=== PATIENT | male | born 1960 | race Caucasian/White ===

== ENCOUNTER 2024-11-13 12:26 | Inpatient (IN) | payer OTHER ==
[2024-11-13 13:06] LABS: Absolute Basophils 0.1 K/uL (0-0.5); Absolute Eosinophils 0.2 K/uL (0-0.5); Absolute Lymphocytes (CBC) 1.5 K/uL (0.7-4.9); Absolute Monocytes 0.5 K/uL (0.1-1.3); Absolute Neutrophil 5.1 K/uL (1.8-8.0); Basophils % 0.8 % (0-1.3); Eosinophils % 2.1 % (0-4.4); Hematocrit 45.1 % (39.6-49.0); Hemoglobin 15.1 g/dL (13.6-17.9); Lymphocytes % 20.5 % (15.3-44.8); MCH 29.5 pg (27.0-35.0); MCHC 33.5 g/dL (32.0-36.0); MCV 88.2 fL (80-100); Monocytes % 6.9 % (3.3-12.3); Neutrophils % 69.7 % (41.7-73.7); Platelets 213 thou/uL (152-406); RBC Red Blood Cell Count 5.11 M/uL (4.33-5.43); Red Cell Distribution Width 14.2 % (12.1-15.2)
[2024-11-13 13:25] LABS: ALT/SGPT 22 U/L (16-61); AST/SGOT 11 U/L (15-37); Albumin 3.5 g/dL (3.4-5.0); Albumin/Globulin Ratio 0.9 (1.1-1.8); Alkaline Phosphatase 81 U/L (45-117); Anion Gap 7.4 mEq/L (5.0-15.0); BUN Blood Urea Nitrogen 19 mg/dL (7-18); Bicarbonate 30 mEq/L (21-32); Bilirubin Direct < 0.2 mg/dL (0-0.2); Bilirubin Indirect, Calculated 0.1 mg/dL (0.2-0.8); Bilirubin Total 0.3 mg/dL (0.2-1.0); Globulin 3.7 g/dL (2.3-3.5); Glomerular Filtration Rate 83 ml/min (=/>90); Glucose Level 276 mg/dL (74-106); Lipase 71 U/L (13-75); NT PRO-BNP 87 pg/mL (<125); Potassium 4.4 mEq/L (3.5-5.1); Protein, Total 7.2 g/dL (6.4-8.2); Sodium Level 133 mEq/L (136-145); Troponin High Sensitivity 3.4 pg/mL (<58.9)
--- NOTE | 2024-11-13 13:30 | RAD REPORT ---
EXAMINATION: ONE VIEW CHEST XR CLINICAL INDICATION: Male, 64 years old.,Chest pain;Dyspnea TECHNIQUE: Frontal chest projection is submitted. Examination is limited by patient positioning and t echnique. COMPARISON: No prior exam. FINDINGS: The lungs are well inflated and clear. No pneumothorax or sizable effusion. The heart is normal in s ize. Mediastinal contours are unremarkable. IMPRESSION: No acute intrathoracic abnormalities.
--- NOTE | 2024-11-13 13:45 | ER ---
Nurse's Notes [facility] Name: Nima Fox Age: 64 yrs Sex: Male : 1960 Arrival Date: 11/13/2024 Time: 12:26 Bed 13 Private MD: Diagnosis: Chest pain, unspecified;Unstable angina Presentation: 11/13 12:30 Chief complaint: Patient states: he has been having chest pain since this morning ap3 patient reports this pain as a 6/10 on the pain scale. patient reports shortness of breath, reflux, sweating and hiccups for approx three weeks. Coronavirus screen: At this time, the client does not indicate any symptoms associated with coronavirus-19. Ebola Screen: No symptoms or risks identified at this time. Initial Sepsis Screen: Does the patient meet any 2 criteria? No. Patient's initial sepsis screen is negative. Does the patient have a suspected source of infection? No. Patient's initial sepsis screen is negative. Risk Assessment: Do you want to hurt yourself or someone else? Patient reports no desire to harm self or others. Onset of symptoms was November 13, 2024. 12:30 Method Of Arrival: Wheelchair ap3 12:30 Acuity: HOLA 2 ap3 Triage Assessment: 12:32 General: Appears in no apparent distress. Behavior is calm, cooperative, appropriate ap3 for age. Pain: Complains of pain in chest Pain currently is 6 out of 10 on a pain scale. Neuro: Level of Consciousness is awake, alert, obeys commands, Oriented to person, place, time, situation, Appropriate for age. Cardiovascular: Reports chest pain, Patient's skin is warm and dry. Respiratory: Airway is patent Respiratory effort is even, unlabored, Respiratory pattern is regular, symmetrical. Historical: - Allergies: 12:32 Ozempic; ap3 - PMHx: 12:32 Diabetes mellitus; Hypertensive disorder; ap3 - Immunization history:: Client reports receiving the 2nd dose of the Covid vaccine, Flu vaccine is not up to date. - Infectious Disease History:: Denies. - Social history:: Smoking status: Patient denies any tobacco usage or history of. - Family history:: not pertinent. - Hospitalizations: : No recent hospitalization is reported. Screenin:33 [facility] ED Fall Risk Assessment (Adult) History of falling in the last 3 months, ap3 including since admission No falls in past 3 months (0 pts) Confusion or Disorientation No (0 pts) Intoxicated or Sedated No (0 pts) Impaired Gait No (0 pts) Mobility Assist Device Used No (0 pt) Altered Elimination No (0 pt) Score/Fall Risk Level 0 - 2 = Low Risk Oriented to surroundings, Maintained a safe environment, Educated pt \T\ family on fall prevention, incl call for assistance when getting out of bed, Assessed \T\ reinforced patient's understanding of fall precautions, Hourly rounding (assess needs \T\ fall precautionary measures) done, Used ambulatory aids as needed (educated on \T\ assisted with), Used gait belt as appropriate. Abuse screen: Denies threats or abuse. Nutritional screening: No deficits noted. Tuberculosis screening: No symptoms or risk factors identified. Assessment: 12:35 General: Appears in no apparent distress. comfortable, Behavior is calm, cooperative, bp appropriate for age. Pain: Complains of pain in chest Pain does not radiate. Pain began 1 day ago. 14:43 Reassessment: REPORT FAXED FOR RM 224. bp Vital Signs: 12:30 BP 113 / 72; Pulse 83; Resp 17; Temp 98.1; Pulse Ox 100% ; Weight 88.45 kg; Height 5 ap3 ft. 10 in. ; Pain 6/10; 13:26 BP 133 / 75; Pulse 74; Resp 10; Pulse Ox 95% ; bp 12:30 Body Mass Index 27.98 (88.45 kg, 177.8 cm) ap3 12:30 Pain Scale: Adult ap3 ED Course: 12:28 Patient arrived in ED. mr 12:31 Triage completed. ap3 12:33 Arm band placed on right wrist. ap3 12:33 Patient maintains SpO2 saturation greater than 95% on room air. ap3 12:34 Modesto Rider MD is Attending Physician. rn 12:43 EKG done, by ED staff, reviewed by Modesto Rider MD. ap3 12:59 Matty Taylor, ODALYS is Primary Nurse. bp 13:00 Initial lab(s) drawn, by ia, sent to lab. Inserted saline lock: 20 gauge in right zm antecubital area, using aseptic technique. Blood collected. Flushed with 10 mL NS. 13:01 Basic Metabolic Panel Sent. zm 13:01 CBC with Diff Sent. zm 13:01 LFT's Sent. zm 13:01 NT PRO-BNP Sent. zm 13:01 Troponin HS Sent. zm 13:01 Lipase Sent. zm 13:07 XRAY Chest (1 view) In Process Unspecified. EDMS 13:26 Patient has correct armband on for positive identification. Client placed on continuous bp cardiac and pulse oximetry monitoring. NIBP monitoring applied. ekg monitor on. Pulse ox on. NIBP on. 13:44 Alfred Rider MD is Hospitalizing Provider. rn Administered Medications: 14:15 Drug: Aspirin PO Chewable Tablet 324 mg PO once; 81 mg tablets x 4 Route: PO; bp 14:31 Follow up: Response: No adverse reaction bp Outcome: 13:44 Decision to Hospitalize by Provider. rn 15:37 Patient left the ED. bp Signatures: Dispatcher [employer] EDMN RajanAdina, Reg Reg mr Modesto Rider MD MD rn Peltier, Brian RN RN Benita Lamb RN RN ap3 Beatrice Brar Corrections: (The following items were deleted from the chart) 12:32 12:32 Allergies: No Known Allergies; ap3 ap3
--- NOTE | 2024-11-13 13:45 | EDPHYS ---
Physician Documentation [facility] Name: Nima Fox Age: 64 yrs Sex: Male : 1960 Arrival Date: 11/13/2024 Time: 12:26 Bed 13 Private MD: ED Physician Modesto Rider HPI: 11/13 13:41 This 64 yrs old Male presents to ER via Wheelchair with complaints of Chest Pain, rn Shortness Of Breath. 13:41 The patient or guardian reports chest pain that is located primarily in the substernal rn area, anterior chest wall, left. 13:41 Onset: 3 week(s) ago. The pain does not radiate. Associated signs and symptoms: rn Pertinent positives: diaphoresis, shortness of breath, Pertinent negatives: abdominal pain, cough, palpitations, syncope. The chest pain is described as aching. Modifying factors: The symptoms are alleviated by nothing. the symptoms are aggravated by exertion. Severity of pain: At its worst the pain was mild in the emergency department the pain has improved. Patient reports intermittent chest pain, left-sided, associated with shortness of breath and diaphoresis with exertion. Alleviated with rest. States had cardiac workup years ago and diagnosed with mitral valve prolapse but no intervention indicated at that time. 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 Denies any fever or chills. No productive cough. No abdominal pain.. Historical: - Allergies: 12:32 Ozempic; ap3 - PMHx: 12:32 Diabetes mellitus; Hypertensive disorder; ap3 - Immunization history:: Client reports receiving the 2nd dose of the Covid vaccine, Flu vaccine is not up to date. - Infectious Disease History:: Denies. - Social history:: Smoking status: Patient denies any tobacco usage or history of. - Family history:: not pertinent. - Hospitalizations: : No recent hospitalization is reported. ROS: 13:41 Constitutional: Negative for fever, chills, and weight loss, Cardiovascular: Positive rn for chest pain with exertion Respiratory: Positive for shortness of breath during exertion only Abdomen/GI: Negative for abdominal pain, nausea, vomiting, diarrhea, and constipation, MS/Extremity: Negative for injury and deformity, Skin: Negative for injury, rash, and discoloration, Neuro: Negative for headache, weakness, numbness, tingling, and seizure, Exam: 13:41 Constitutional: This is a well developed, well nourished patient who is awake, alert, rn and in no acute distress. Cardiovascular: Regular rate and rhythm. No pulse deficits. Respiratory: No increased work of breathing, no retractions or nasal flaring. Abdomen/GI: Soft, non-tender MS/ Extremity: Pulses equal, no cyanosis. Neurovascular intact. Full, normal range of motion. Equal circumference. Neuro: Awake and alert, GCS 15 13:46 ECG was reviewed by the Attending Physician. rn Vital Signs: 12:30 BP 113 / 72; Pulse 83; Resp 17; Temp 98.1; Pulse Ox 100% ; Weight 88.45 kg; Height 5 ap3 ft. 10 in. ; Pain 6/10; 13:26 BP 133 / 75; Pulse 74; Resp 10; Pulse Ox 95% ; bp 12:30 Body Mass Index 27.98 (88.45 kg, 177.8 cm) ap3 12:30 Pain Scale: Adult ap3 MDM: 12:35 Medical Screening Exam initiated rn 13:41 Differential diagnosis: acute myocardial infarction, acute pericarditis, rn costochondritis, esophagitis, gastritis, pleurisy, pneumothorax, stable angina, unstable angina. HEART Score: History: Highly Suspicious (2), ECG: Normal (0), Age: > or = 65 years (2), Risk Factors: 1 or 2 risk factors (1), Troponin: < or = 1 x Normal Limit (0), Total Score = 5. Data reviewed: vital signs, nurses notes, lab test result(s), EKG, radiologic studies, plain films, and as a result, I will admit patient. Consideration of Admission/Observation Patient was admitted/placed on observation. Escalation of care including admission/observation considered. Counseling: I had a detailed discussion with the patient and/or guardian regarding the historical points, exam findings, and any diagnostic results supporting the discharge/admit diagnosis, lab results, radiology results, the need for further work-up and treatment in the hospital. Response to treatment: the patient's symptoms have markedly improved after treatment. ED course: Troponin negative and ECG without ischemia. Concerning story of exertional dyspnea and chest pain with diaphoresis and is worsening over the last 3 weeks. Will admit for cardiac workup.. 11/13 12:40 Order name: Basic Metabolic Panel; Complete Time: 13:34 rn 11/13 12:40 Order name: CBC with Diff; Complete Time: 13:34 rn 11/13 12:40 Order name: LFT's; Complete Time: 13:34 rn 11/13 12:40 Order name: NT PRO-BNP; Complete Time: 13:34 rn 11/13 12:40 Order name: Troponin HS; Complete Time: 13:34 rn 11/13 12:41 Order name: Lipase; Complete Time: 13:34 rn 11/13 14:18 Order name: Troponin High Sensitivity EDMS 11/13 14:18 Order name: Troponin High Sensitivity EDMS 11/13 14:18 Order name: Troponin High Sensitivity EDMS 11/13 12:40 Order name: XRAY Chest (1 view); Complete Time: 13:34 rn 11/13 14:21 Order name: Echo with Doppler EDMS 11/13 12:40 Order name: EKG; Complete Time: 12:41 rn 11/13 12:40 Order name: Cardiac monitoring; Complete Time: 12:49 rn 11/13 12:40 Order name: EKG - Nurse/Tech; Complete Time: 12:43 rn 11/13 12:40 Order name: IV Saline Lock; Complete Time: 13:00 rn 11/13 12:40 Order name: Labs collected and sent; Complete Time: 13:00 rn 11/13 12:40 Order name: O2 Per Protocol; Complete Time: 12:49 rn 11/13 12:40 Order name: O2 Sat Monitoring; Complete Time: 12:49 rn EC:46 Rate is 83 beats/min. Rhythm is regular. QRS [place] is Normal. RI interval is normal. QRS rn interval is normal. QT interval is normal. No Q waves. T waves are Flattened in leads II, III, aVF, V4, V5, V6. No ST changes noted. Clinical impression: NSR w/ Non-specific ST/T Changes. Interpreted by me. Reviewed by me. Administered Medications: 14:15 Drug: Aspirin PO Chewable Tablet 324 mg PO once; 81 mg tablets x 4 Route: PO; bp 14:31 Follow up: Response: No adverse reaction bp Disposition Summary: 11/13/24 13:44 Hospitalization Ordered Notes: Hospitalization Status: Observation rn Provider: Alfred Rider rn Location: Telemetry/[facility] (observation) rn Condition: Stable rn Problem: new rn Symptoms: have improved rn Bed/Room Type: Standard rn Room Assignment: 224(11/13/24 14:29) bd Diagnosis - Chest pain, unspecified rn - Unstable angina rn Forms: - Medication Reconciliation Form rn - SBAR form rn - Leadership Thank You Letter rn Signatures: Dispatcher [employer] EDMS Mariluz diego bd Modesto Rider MD MD rn Peltier, Brian, RN Benita Chan RN RN ap3 Corrections: (The following items were deleted from the chart) 12:32 12:32 Allergies: No Known Allergies; ap3 ap3 12:41 12:41 BASIC METABOLIC PANEL+C.LAB.BRZ ordered. EDMS EDMS 12:41 12:41 CBC+H.LAB.BRZ ordered. EDMS EDMS 12:41 12:41 HEPATIC FUNCTION+C.LAB.BRZ ordered. EDMS EDMS 12:41 12:41 PROBNP+C.LAB.BRZ ordered. EDMS EDMS 12:41 12:41 Troponin High Sensitivity+C.LAB.BRZ ordered. EDMS EDMS 14:29 13:44 rn bd
[2024-11-13] MEDS ORDERED: ASPIRIN 81 MG CHEWABLE TABLET ONE (14:20)
--- NOTE | 2024-11-13 14:46 | P.HP ---
Certification for Inpatient Patient admitted to: Observation With expected LOS: <2 Midnights Patient will require the following post-hospital care: None Practitioner: I am a practitioner with admitting privileges, knowledge of patient current condition, hospital course, and medical plan of care. Services: Services provided to patient in accordance with Admission requirements found in Title 42 Section 412.3 of the Code of Federal Regulations Patient History Date of Service: 11/13/24 History of Present Illness: 64-year-old male with history of jzi-nziiows-okkjqbkso diabetes, mitral valve prolapse presents emergency department chief complaint of dyspnea on exertion, chest pain last 3 weeks. He also reports what he describes as indigestion with burning epigastric pain and frequent hiccuping lately. Patient and family report they had a stress test/echo with Dr. Damon about 18 months ago that was reportedly normal. Has never had a heart catheterization. Patient describes dyspnea on exertion which is new as of the last 3 weeks. He was evaluated in the emergency department his labs are significant for an initial high sensitive troponin of 3.4 glucose 276 chest x-ray was negative for acute findings. ED provider wishes to admit patient for further evaluation and management of dyspnea on exertion, chest pain. 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 - Family History Father -: Heart disease Brother -: Heart disease - Social History Smoking Status: Never smoker Alcohol use: No CD- Drugs: No Caffeine use: Yes Place of Residence: Home Review of Systems 10-point ROS is otherwise unremarkable Respiratory: SOB with Excertion Cardiovascular: Chest Pain Physical Examination - Physical Exam General: Alert, In no apparent distress, Oriented x3 HEENT: Atraumatic, PERRLA, EOMI Neck: Supple, 2+ carotid pulse no bruit, No LAD Respiratory: Clear to auscultation bilaterally, Normal air movement Cardiovascular: Regular rate/rhythm, Normal S1 S2 Gastrointestinal: Normal bowel sounds, No tenderness Musculoskeletal: No tenderness Integumentary: No rashes Neurological: Normal speech, Normal strength at 5/5 x4 extr, Normal tone, Normal affect - Studies Laboratory Data (last 24 hrs) 11/13/24 11/13/24 12:56 12:56 WBC 7.40 Hgb 15.1 Hct 45.1 Plt Count 213 Sodium 133 L Potassium 4.4 BUN 19 H Creatinine 1.00 Glucose 276 H Total Bilirubin 0.3 AST 11 L ALT 22 Alkaline Phosphatase 81 Lipase 71 Assessment and Plan - Plan Assessment: Chest pain/dyspnea on exertion rule out ACS Suspected GERD Diabetes mellitus type [id number]-[id number] with hyperglycemia Mitral valve prolapse Plan: Chest pain/dyspnea on exertion rule out ACS Trend troponins, monitor on telemetry cardiology consult, echocardiogram ordered Reports outpatient stress around [address] Gallardo Currently chest pain-free Suspected GERD Will try twice daily PPI Recommend outpatient follow-up with GI Diabetes mellitus type 1ygj-zzjsjck-tgpicnvsc with hyperglycemia ACHS Accu-Chek, sliding scale insulin has not been taking his meds last few days Mitral valve prolapse Will obtain echo DVT PPX: Lovenox Code status: Full Discharge Plan: Home Plan to discharge in: 48 Hours - Advance Directives Does patient have a Living Will: No Does patient have a Durable POA for Healthcare: No - Code Status/Comfort Care Code Status Assessed: Yes (Full code) Critical Care: No Time Spent Managing Pts Care (In Minutes): 64
[2024-11-13] MEDS ORDERED: MORPHINE 2 MG/ML SYR IV PRN (15:13)
[2024-11-13] MEDS ORDERED: ONDANSETRON 4 MG/2 ML VIAL IV PRN (15:13)
[2024-11-13] MEDS ORDERED: GLUCAGON 1 MG/VIAL IM PRN (15:19)
[2024-11-13] MEDS ORDERED: D10W 125 ML IV PRN (15:19)
--- NOTE | 2024-11-13 16:30 | P.CNS ---
Date of Consult: 11/13/24 Chief Complaint: indigestion History of Present Illness: Patient with PMH of DM presented with worsening indigestion, nausea and SOB and occasional chest pain, described as sharp, mid, no radiation, also report dizziness and CELIS. 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 moist/pink, EOMI, Sclerae nonicteric Neck: Supple, 2+ carotid pulse no bruit, No LAD, Without JVD or thyroid abnormality Respiratory: Clear to auscultation bilaterally, Normal air movement Cardiovascular: Regular rate/rhythm, Normal S1 S2 Gastrointestinal: Normal bowel sounds, No tenderness Musculoskeletal: No tenderness Integumentary: No rashes Neurological: Normal gait, Normal speech, Normal tone, Normal affect Lymphatics: No axilla or inguinal lymphadenopathy Laboratory Data (last 24 hrs) 11/13/24 11/13/24 12:56 12:56 WBC 7.40 Hgb 15.1 Hct 45.1 Plt Count 213 Sodium 133 L Potassium 4.4 BUN 19 H Creatinine 1.00 Glucose 276 H Total Bilirubin 0.3 AST 11 L ALT 22 Alkaline Phosphatase 81 Lipase 71 - Problems (1) Chest pain Current Visit: Yes Status: Acute Plan: EKG is normal, 1st set of troponin is negative, continue to trend, if negative x3 then exercise nuclear stress test in am (Cardiolite) and echo (2) Dizziness Current Visit: Yes Status: Acute Plan: monitor on tele and consider outpatient event monitor
[2024-11-13 16:58] VITALS: BMI 27.8
[2024-11-13] MEDS: INSULIN REGULAR (HUMAN) 100 UNIT/ML SQ SCH (17:24)
[2024-11-13] MEDS: PANTOPRAZOLE 40MG TABLET PO SCH (17:24)
[2024-11-13] MEDS: SUCRALFATE 1GM/10ML UCUP PO SCH (17:24)
[2024-11-13] MEDS: ENOXAPARIN 40 MG/0.4 ML SQ SCH (17:25)
[2024-11-13] MEDS: GABAPENTIN 300 MG CAP PO SCH (21:00)
[2024-11-13] MEDS: ATORVASTATIN 40 MG TAB PO SCH (21:13)
[2024-11-13] MEDS: ACETAMINOPHEN 325 MG TABLET PO PRN (22:13)
[2024-11-14 06:04] LABS: Absolute Eosinophils 0.2 K/uL (0-0.5); Absolute Lymphocytes (CBC) 1.6 K/uL (0.7-4.9); Absolute Monocytes 0.6 K/uL (0.1-1.3); Absolute Neutrophil 5.1 K/uL (1.8-8.0); Basophils % 0.5 % (0-1.3); Eosinophils % 3.1 % (0-4.4); Hematocrit 45.1 % (39.6-49.0); Hemoglobin 14.9 g/dL (13.6-17.9); Lymphocytes % 21.4 % (15.3-44.8); MCH 29.7 pg (27.0-35.0); MCHC 33.1 g/dL (32.0-36.0); MCV 89.6 fL (80-100); MPV 8.1 fL (7.6-11.3); Monocytes % 7.7 % (3.3-12.3); Neutrophils % 67.3 % (41.7-73.7); Nucleated Red Blood Cells % 0.1 % (0-0); Platelets 191 thou/uL (152-406); RBC Red Blood Cell Count 5.03 M/uL (4.33-5.43); Red Cell Distribution Width 13.9 % (12.1-15.2)
[2024-11-14 06:31] LABS: Anion Gap 6.8 mEq/L (5.0-15.0); Potassium 4.8 mEq/L (3.5-5.1)
--- NOTE | 2024-11-14 10:07 | RAD REPORT ---
EXAM: Nuclear medicine cardiac perfusion examination with ejection fraction HISTORY: Chest pain Chest Pain TECHNIQUE: Rest images: 10.6 mCi technetium 99m sestamibi Stress images: 31.1 mCi of technetium 99m sestamibi COMPARISON: None. FINDINGS: Tomographic images: Mild reduced radiopharmaceutical accumulation is noted along the LV septum LV ape x with stress likely indicating stress-induced ischemia. No finding to suspect hibernating myocardium. Ejection fraction of 63%. EDV: 65 mL ESV: 24 mL LHR: 0.35 TID: 0.63 IMPRESSION: Positive for stress-induced ischemia involving the LV apex and septum.
[2024-11-14] MEDS: ASPIRIN EC 81 MG TAB PO SCH (10:29)
--- NOTE | 2024-11-14 10:40 | P.PN ---
Subjective Date of Service: 11/14/24 Chief Complaint: indigestion Subjective: No new changes, No C/O voiced, Tolerating diet, Ambulating, Improving Review of Systems 10-point ROS is otherwise unremarkable Physical Examination - Vital Signs Temperature: 97.5 F Blood Pressure: 143/72 Pulse: 74 Respirations: 15 Pulse Ox (%): 100 - Physical Exam General: Alert, In no apparent distress HEENT: Atraumatic, PERRLA, EOMI Neck: Supple, JVD not distended Respiratory: Clear to auscultation bilaterally, Normal air movement Cardiovascular: Regular rate/rhythm, Normal S1 S2 Gastrointestinal: Normal bowel sounds, No tenderness Musculoskeletal: No tenderness Integumentary: No rashes Neurological: Normal speech, Normal tone, Normal affect Lymphatics: No axilla or inguinal lymphadenopathy - Studies Laboratory Data (last 24 hrs) 11/13/24 11/13/24 12:56 12:56 WBC 7.40 Hgb 15.1 Hct 45.1 Plt Count 213 Sodium 133 L Potassium 4.4 BUN 19 H Creatinine 1.00 Glucose 276 H Total Bilirubin 0.3 AST 11 L ALT 22 Alkaline Phosphatase 81 Lipase 71 Medications List Reviewed: Yes Assessment And Plan - Current Problems (Diagnosis) (1) Chest pain Current Visit: Yes Status: Acute Plan: Patient stress test is positive for reversible ischemia in LAD territory, will proceed with coronary angiogram ASA 81 mg daily Lipitor 40 mg daily (2) Dizziness Current Visit: Yes Status: Acute Plan: monitor on tele and consider outpatient event monitor
--- NOTE | 2024-11-14 11:27 | EKG ---
Test Date: 2024-11-13 Test Time: 12:41:24 English Language Learner Tutor: ALP MEASUREMENT RESULTS: Intervals: Rate: 83 [place]: 132 QRSD: 84 QT: 360 QTc: 423 [place]: P: 64 [place]: 132 QRS: -7 T: -12 INTERPRETIVE STATEMENTS: Normal sinus rhythm Nonspecific T wave abnormality Abnormal ECG Compared to ECG 01/11/2005 14:46:00 T-wave abnormality now present Electronically Signed On 11-14-24 11:26:52 LARYNGOLOGIST by Tariq Sarabia
[2024-11-14] MEDS ORDERED: HEPARIN 10,000 UNIT/10 ML VIAL IV ONE (13:44)
[2024-11-14] MEDS ORDERED: HEPA 1000U/500MLS 2,000 UNIT/1,000 ML BAG IV ONE (13:44)
[2024-11-14] MEDS ORDERED: LIDOCAINE 1% 20 ML MDV ONE (13:44)
--- NOTE | 2024-11-14 13:44 | TREADMILL ---
70% H.R.: 108 85% H.R.: 131 90% H.R.: 139 100% H.R.: 154 DX: CHEST PAIN Date of Study: 11/14/2024 Ht: 5' 10 " Wt: 194 lb 0 oz Consulting Physician: BOY CHAKRABORTY MD MEDICATIONS: ASPIRIN, LIPITOR, LOVENOX, NOVOLIN-R, NEURONTIN HISTORY: 64 YEAR OLD MALE WITH HISTORY OF DIABETES MELLITUS, NON SMOKER, NO DRUG USE. PHYSICIAL EXAMINATION: RESTING B.P.: 130/77 RESTING H.R.: 74 RESTING EKG: SINUS RHYTHM. PROTOCOL: AASHISH CARDIOLITE EXERCISE TIME: 9:00 MAXIMUM HEART RATE: 135 87 % OF PREDICTED B.P. AT PEAK STRESS: 190/76 H.R. AT 1 MINUTE POST EXERCISE: 118 IMPRESSION: AASHISH CARDIOLITE STRESS TEST PERFORMED. CARDIOLITE INJECTED. SEE NUCLEAR MEDICINE REPORT. NO CHEST PAIN. NO VENTRICULAR TACHYCARDIA. NO SUPRAVENTRICULAR TACHYCARDIA.
[2024-11-14] MEDS ORDERED: MIDAZOLAM HCL 2 MG/2 ML INJ ONE (13:45)
[2024-11-14] MEDS ORDERED: ATROPINE SULF 1 MG/10 ML SYR IV ONE (13:45)
[2024-11-14] MEDS ORDERED: CLOPIDOGREL 75 MG TABLET ONE (13:45)
[2024-11-14] MEDS ORDERED: ASPIRIN 325 MG TAB ONE (13:45)
[2024-11-14] MEDS ORDERED: HEPARIN 5000 UNIT/ML 1 ML VIAL ONE (13:45)
[2024-11-14] MEDS ORDERED: TICAGRELOR 90 MG TABLET PO ONE (13:45)
[2024-11-14] MEDS ORDERED: FENTANYL CITR 100 MCG/2 ML ONE (13:46)
[2024-11-14] MEDS ORDERED: NA CHLORIDE 0.9% 500 ML ONE (13:53)
--- NOTE | 2024-11-14 17:37 | P.PN ---
Date of Service: 11/14/24 Subjective Stress test this AM, positive for reversible ischemia to LAD, heart cath followed Will evaluate for discharge in the AM ROS 10 point ROS as noted above, otherwise negative Physical Exam General: Alert and Oriented x3, NAD HEENT: Atraumatic, PERRLA, EOMI Neck: Supple, 2+ carotid pulse no bruit, No LAD Respiratory: Clear BBS, Normal air movement. on RA Cardiovascular: RRR, Normal S1 S2 Gastrointestinal: Normal bowel sounds, No tenderness Musculoskeletal: No tenderness Integumentary: No rashes Neurological: Normal speech, Normal strength at 5/5 x4 extr, Normal tone, Normal affect Vitals Reviewed Assessment: Chest pain/dyspnea on exertion rule out ACS Suspected GERD Diabetes mellitus type 2zns-bmahqsg-bksifgiji with hyperglycemia Mitral valve prolapse Plan: Chest pain/dyspnea on exertion rule out ACS troponins 3.4/3.3/4.4 Continuous telemetry cardiology consult, echocardiogram results pending Reports outpatient stress around [address] Gallardo Currently chest pain-free Suspected GERD Will try twice daily PPI Recommend outpatient follow-up with GI Diabetes mellitus type 4hbh-qtmjgbz-lbtpbpaef with hyperglycemia ACHS Accu-Chek, sliding scale insulin Semglee 10 units added has not been taking his meds last few days Mitral valve prolapse echo with results pending DVT PPX: Lovenox Code status: Full Discharge Plan: Home Plan to discharge in: 48 Hours
[2024-11-14 17:47] VITALS: O2SAT 98
[2024-11-14 18:36] VITALS: BP 132/71; TEMP 97.6
[2024-11-14] MEDS: INSULIN GLARGINE 100 UNIT/ML SQ SCH (21:00)
--- NOTE | 2024-11-15 23:41 | OP ---
Date of Procedure: 11/14/2024 Surgeon: Tariq Sarabia Procedures Performed: 1.Left heart catheterization. 2.Selective coronary angiogram. Indication For Procedure: Unstable angina, abnormal stress test. Complications: None. Estimated Blood Loss: Less than 50 cc. Access: Right radial, closed by TR band. Sedation Time: 20 minutes with 1 of Versed and 50 of fentanyl. Description Of Procedure: After risks, benefits, and alternatives were explained to the patient, the patient agreed to proceed with the procedure and signed informed consent. The patient was brought b k to the laboratory equipment cleaner, prepped and draped in sterile fashion. Time-out was performed. Sedation was ad ministered. Next, the right radial access was obtained using ultrasound-guided micropuncture technKast ue. [place] 4 catheter was advanced to the LV cavity. LVEDP was obtained. Pullback did not show any gradient. Same catheter was used for selective angiogram of the left and right coronary systems. at catheter was also used for the left subclavian artery angiogram. At the end of procedure, cathete r was removed over a J-wire. Sheath was removed. TR band was applied. Hemostasis achieved. The pa tient was moved to recovery in stable condition. Findings: 1.Left main: Normal. 2.LAD: Proximal diffuse 80% disease, then mild luminal irregularities with distal 40% to 50% diseas e. 3.Left circumflex: Proximal mild luminal irregularities, gives large OM1 with mild luminal irregula rities and then gives medium-sized OM2 with a proximal 80% disease, and gives OM3, small, with a prox imal 80% disease. 4.RCA is large dominant with mild luminal irregularities. 5.RPDA: Mild luminal irregularities. 6.RPLV: Mid 80% disease. 7.Left subclavian artery patent. 8.LVEDP: 5 mmHg. Assessment And Plan: Significant left anterior descending, obtuse marginal 2, obtuse marginal 3, pos terior left ventricular disease. Normal filling pressure. Plan will be to transfer for CT Surgery evaluation for coronary artery bypass grafting. ONEILL/MODL Voice ID: [id number] Report ID: [id number]
== END 2024-11-14 22:30 | disposition short-term general hospital (02) | DRG 287 ==
LOC: ER 12:26 → ERHOLD 14:16 → 2ND 14:56 → OBSVTOIN 11-14 17:35
PROVIDERS: ADMIT Hospitalist; ATTEND Hospitalist
PROC: B2111ZZ Fluoroscopy of Multiple Coronary Arteries using Low Osmolar Contrast (ICD-10-PCS; principal; 2024-11-14)
PROC: 4A023N7 Measurement of Cardiac Sampling and Pressure, Left Heart, Percutaneous Approach (ICD-10-PCS; 2024-11-14)
DX: R07.9 Chest pain, unspecified (principal); I10 Essential (primary) hypertension; E11.65 Type 2 diabetes mellitus with hyperglycemia; K21.9 Gastro-esophageal reflux disease without esophagitis; I34.1 Nonrheumatic mitral (valve) prolapse; Z88.8 Allergy status to other drugs, medicaments and biological substances
CPT/HCPCS: 36415; 71045; 76937; 78452; 80048; 80061; 80076; 82947; 83036; 83690; 83880; 84484; 85025; 93005; 93017; 93458; 99152; 99153; 99284; A9500; C1893; G0378; J0461; J1644; J1650; J2003; J2250; J3010; J7040; Q9966